=== PATIENT | female | born 1955 | race Caucasian/White ===

== ENCOUNTER 2023-06-28 14:49 | Outpatient (REF) | payer MEDICARE, SELFPAY ==
[2023-06-28 15:43] LABS: Bilirubin Urine NEGATIVE (NEGATIVE); Blood Urine SMALL (NEGATIVE); Clarity Urine CLOUDY (CLEAR); Glucose Urine UA >=1000 mg/dL (NEGATIVE); Ketones Urine NEGATIVE (NEGATIVE); Leukocyte Esterase Urine MODERATE (NEGATIVE); Nitrite Urine NEGATIVE (NEGATIVE); Protein Urine 100 mg/dL (NEG/TRACE); Urobilinogen Urine 0.2 EU/dL (0.2-1.0)
[2023-06-28 15:58] LABS: Color Urine LT YELLOW (YELLOW)
== END 2023-06-28 14:50 | disposition home or self-care (01) ==
LOC: LAB 14:49
PROVIDERS: PCP Family Medicine; Visit Provider Family Medicine
DX: R30.0 Dysuria (principal)
CPT/HCPCS: 81003; 87086; 87150; 87186

== ENCOUNTER 2024-07-08 10:54 | Outpatient (OUT) | payer MEDICARE, SELFPAY ==
[2024-07-08 11:49] LABS: Estimated Average Glucose 137 mg/dL; Glycohemoglobin A1C 6.4 % (4.5-6.2)
[2024-07-08 13:16] LABS: Microalbumin Urine Random 23.4 mg/dL (<=30.0)
== END 2024-07-08 10:55 | disposition home or self-care (01) ==
LOC: LAB 10:58
PROVIDERS: PCP Family Medicine; Visit Provider Family Medicine
DX: E11.65 Type 2 diabetes mellitus with hyperglycemia (principal); Z79.4 Long term (current) use of insulin
CPT/HCPCS: 36415; 82043; 83036

== ENCOUNTER 2024-07-08 11:12 | Outpatient (OUT) | payer MEDICARE, SELFPAY ==
[2024-07-08 11:54] LABS: Albumin Level 2.7 g/dL (3.4-5.0); Anion Gap 9.9; Calcium 9.5 mg/dL (8.5-10.1); Carbon Dioxide 31.7 mmol/L (21.0-32.0); Chloride 99 mmol/L (98-107); Estimated GFR (African America 23 (>=60); Estimated GFR (Non-African Ame 19 (>=60); Glucose 122 mg/dL (74-106); Phosphorus 3.6 mg/dL (2.6-4.7); Potassium 4.6 mmol/L (3.5-5.1); Sodium 136 mmol/L (136-145)
[2024-07-08 12:26] LABS: Bilirubin Urine NEGATIVE (NEGATIVE); Blood Urine LARGE (NEGATIVE); Clarity Urine CLOUDY (CLEAR); Glucose Urine UA 500 mg/dL (NEGATIVE); Ketones Urine NEGATIVE (NEGATIVE); Leukocyte Esterase Urine LARGE (NEGATIVE); Nitrite Urine NEGATIVE (NEGATIVE); Protein Urine 100 mg/dL (NEG/TRACE); Specific Gravity Urine 1.025 (1.005-1.025); Urobilinogen Urine 0.2 EU/dL (0.2-1.0)
[2024-07-08 12:28] LABS: Color Urine YELLOW (YELLOW)
[2024-07-08 13:14] LABS: Protein Creatinine Ratio Urine 2.48; Total Protein Urine Random 164.6 mg/dL (<=11.9)
== END 2024-07-08 11:13 | disposition home or self-care (01) ==
LOC: LAB 11:14
PROVIDERS: PCP Family Medicine
DX: E11.65 Type 2 diabetes mellitus with hyperglycemia (principal); Z79.4 Long term (current) use of insulin; E11.21 Type 2 diabetes mellitus with diabetic nephropathy
CPT/HCPCS: 36415; 80069; 81003; 82043; 82570; 83036; 84156